=== PATIENT | male | born 1980 | race Caucasian/White ===

== ENCOUNTER 2021-03-03 09:59 | Emergency (ER) | payer MEDICAID ==
[~2021-03-03] VITALS: Ht 172.7 cm; Wt 66.0 kg
[2021-03-03 11:54] VITALS: BP 130/80
== END 2021-03-03 12:49 | disposition home or self-care (01) ==
LOC: ER 09:59
DX: F41.9 Anxiety disorder, unspecified (principal)
CPT/HCPCS: 99283